=== PATIENT | female | born 1990 | race Caucasian/White ===

== ENCOUNTER 2017-08-03 13:01 | Emergency (ER) | payer BC, MEDICAID ==
[2017-08-03] MEDS ORDERED: traMADol 50 MG Tab PO ONE (13:02)
[2017-08-03] MEDS ORDERED: Ketorolac 60 MG/2 ML SDV IM ONE (13:55)
[2017-08-03] MEDS ORDERED: traMADol 50 MG Tab PO PRN (15:58)
--- NOTE | 2017-08-03 15:59 | EDM.PDOC ---
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 Stated Complaint: POSSIBLE RUPTURED OVARIAN CYST Time Seen by Provider: 08/03/17 15:52 Source of Information: Reports: Patient History Limitations: Reports: No Limitations - History of Present Illness INITIAL COMMENTS - FREE TEXT/NARRATIVE: c/o R ovarian pain pt with sharp pain in suprapubic area just to R of midline same pain as before pt has had ovarian cyst x 5-6 going back to age 11, has had laparoscopy and cyctectomy x 4, last time was 2013 onset menses 1d ago, usual flow, no BC, usualy with 3-5d flow cysts tend to occur in perimenstrual area visiting with per parents, 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, plans to see doctor locally in 2d or in [place] in 4-5d no f/c/d pain dec'd 01/26 to 10/26 after Toradol prefers not to take Lortab, made her woozy after neck surgery, willing to try tramadol APAP & Midol had not helped has had appy localized, no radiation, inc'd with walking and moving, dec'd when curled up in position right lower abdomen Pain Score (Numeric/FACES): 8 - Related Data Allergies Allergy/AdvReac Type Severity Reaction Status Date / Time No Known Allergies Allergy Verified 08/03/17 14:13 Home Meds: Home Meds Ciprofloxacin [Ciprofloxacin HCl] 250 mg PO BID #12 tab 08/03/17 [Rx] traMADol HCl [Tramadol HCl ER] 100 mg PO Q6H PRN #6 cpbp.25.75 08/03/17 [Rx] Past Medical History 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 Neurological History: Reports: Other (See Below) Other Neuro History: states that she has epilepsy but is not on any medication. - Past Surgical History GI Surgical History: Reports: Appendectomy Social & Family History - Family History Family Medical History: Noncontributory - Tobacco Use Smoking Status *Q: Current Every Day Smoker Years of Tobacco use: 8 Packs/Tins Daily: 0.3 - Caffeine Use Caffeine Use: Reports: Coffee, Soda - Recreational Drug Use Recreational Drug Use: No ED ROS GENERAL - Review of Systems Review Of Systems: See Below Constitutional: Reports: No Symptoms HEENT: Reports: No Symptoms Respiratory: Reports: No Symptoms Cardiovascular: Reports: No Symptoms Endocrine: Reports: No Symptoms GI/Abdominal: Reports: Abdominal Pain : Reports: No Symptoms. Denies: Dysuria, Frequency Musculoskeletal: Reports: No Symptoms Skin: Reports: No Symptoms Neurological: Reports: No Symptoms Psychiatric: Reports: No Symptoms Hematologic/Lymphatic: Reports: No Symptoms Immunologic: Reports: No Symptoms ED EXAM, RENAL/ - Physical Exam Exam: See Below Exam Limited By: No Limitations General Appearance: Alert, WD/WN, No Apparent Distress, Moderate Distress Neck: Normal Inspection, Supple, Non-Tender, Full Range of Motion Respiratory/Chest: No Respiratory Distress Cardiovascular: Regular Rate, Rhythm GI/Abdominal: Other (soft, nl BS x 4, 2+ tender only localized over R ovary, no flank tender). No: Distended, Guarding, Rigid, Rebound Course - Vital Signs Last Recorded V/S: Last Vital Signs Temp 36.9 C 08/03/17 13:40 Pulse 78 08/03/17 13:40 Resp 18 08/03/17 13:40 BP 108/65 08/03/17 13:40 Pulse Ox 100 08/03/17 13:40 - Orders/Labs/Meds Orders: Active Orders 24 hr Category Date Time Status CULTURE URINE [RM] Stat Lab 08/03/17 15:46 Ordered Labs: Laboratory Tests 08/03/17 Range/Units 14:50 Urine Color Yellow (YELLOW) Urine Appearance Cloudy (CLEAR) Urine pH 6.5 (5.0-6.5) Ur Specific [place] 1.020 (1.010-1.025) Urine Protein Negative (NEGATIVE) mg/dL Urine Glucose (UA) Normal (NEGATIVE) mg/dL Urine Ketones 50 H (NEGATIVE) mg/dL Urine Occult Blood Moderate H (NEGATIVE) Urine Nitrite Positive H (NEGATIVE) Urine Bilirubin Negative (NEGATIVE) Urine Urobilinogen 4 H (NEGATIVE) mg/dL Ur Leukocyte Esterase Negative (NEGATIVE) Urine RBC 5-10 (0) Urine WBC 10-20 H (0) Ur Squamous Epith Cells Few H (NS,R,O) Urine Bacteria Many H (NS) Urine Mucus Few H (NS) Meds: Medications Discontinued Medications Generic Name Dose Route Start Last Admin Trade Name Freq PRN Reason Stop Dose Admin Ketorolac Tromethamine 60 mg 08/03/17 13:55 08/03/17 14:13 Toradol IM 08/03/17 13:56 60 mg ONETIME ONE Administration Departure - Departure Time of Disposition: 16:01 Disposition: Home, Self-Care 01 Condition: Good Clinical Impression: Ovarian cyst, UTI (urinary tract infection) - Discharge Information Prescriptions: Ciprofloxacin [Ciprofloxacin HCl] 250 mg PO BID #12 tab traMADol HCl [Tramadol HCl ER] 100 mg PO Q6H PRN #6 cpbp.25.75 PRN Reason: Pain Instructions: Ovarian Cyst, Urinary Tract Infection, Adult Referrals: PCP,None [Primary Care Provider] - Additional Instructions: For infection, take ciprofloxacin 250 mg 1 tab 2 times a day for 7 days. For pain, take acetaminophen 500 mg 2 tabs and ibuprofen 200 mg 3 tabs 4 times a day (meals and bedtime) for 3-7 days. For pain, as needed, take tramadol 50 mg 1 tab every 6 hours. No alcohol. Soak in warm tub for 10 minutes several times a day as needed. Rest. See a local physician in 2 days or your [place] physician in 4-5 days. Call your Physician or Return to Emergency Department if: * Your condition worsens in any way. * You develop fever greater than 100.4. * You have vomitting that does not stop with medications. * You have pain that is not controlled with medications. - My Orders Last 24 Hours: My Active Orders 08/03/17 15:46 CULTURE URINE [RM] Stat - Assessment/Plan Last 24 Hours: My Active Orders 08/03/17 15:46 CULTURE URINE [RM] Stat
[2017-08-03] MEDS ORDERED: Ciprofloxacin 250 MG Tab PO SCH (16:00)
== END 2017-08-03 16:20 | disposition home or self-care (01) ==
LOC: FB.ED 13:01
DX: N83.201 Unspecified ovarian cyst, right side (principal); N39.0 Urinary tract infection, site not specified; F17.210 Nicotine dependence, cigarettes, uncomplicated; Z90.49 Acquired absence of other specified parts of digestive tract
CPT/HCPCS: 81001; 87086; 87088; 87186; 96372; 99284; A9270; J1885; 99283

== ENCOUNTER 2017-09-12 14:18 | Emergency (ER) | payer BC, MEDICAID ==
[2017-09-12] MEDS ORDERED: Sodium Chloride 0.9% 1,000 ML IV ONE (14:23)
[2017-09-12 15:21] LABS: ACETAMINOPHEN < 2 ug/mL (10-30)
[2017-09-12] MEDS ORDERED: Potassium Chloride 20 MEQ Tab.ER PO ONE ×2 (16:03→17:33)
--- NOTE | 2017-09-12 16:12 | EDM.PDOC ---
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 Pt took 8 tables of ultram during her sz because she was confused. She was on Phenobarbital in the past, did not take this medication for months. She was on Keppra at one time in the past, did "not like it". She had about 20-30 Seizures since March last year. Moved from [place] to [place] a few months ago, has no PMD or Neurologist in the [place] area at this time. her Seizures are lasting seconds and she has no LOC during the seizures. EEG was done in the distant past. Last CT head was 2008. Pt denied Trauma, tongue bite or Urine or stool incontinence during the seizures. Denied . No other acute medical issues. BP 141/75 RR 18, Pulse ox 100% on RA Temp 36.8 Pulse 77. 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: Other (see below) (ultram 8 tablets) head Pain Score (Numeric/FACES): 8 - Related Data Allergies Allergy/AdvReac Type Severity Reaction Status Date / Time No Known Allergies Allergy Verified 09/12/17 14:49 Home Meds: Home Meds traMADol HCl [Tramadol HCl ER] 100 mg PO Q6H PRN #6 cpbp.25.75 08/03/17 [Rx] levETIRAcetam [Keppra 500 MG/5 ML Soln] 500 mg PO DAILY #20 cup 09/12/17 [Rx] Past Medical History Cardiovascular History: Reports: Arrhythmia Other Cardiovascular History: hypotension 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 Neurological History: Reports: Seizure, Other (See Below) Other Neuro History: states that she has epilepsy but is not on any medication. - Past Surgical History Other HEENT Surgeries/Procedures: neck surgery GI Surgical History: Reports: Appendectomy Social & Family History - Family History Family Medical History: Noncontributory - Tobacco Use Smoking Status *Q: Current Every Day Smoker Years of Tobacco use: 9 Packs/Tins Daily: 0.5 - Caffeine Use Caffeine Use: Reports: Coffee, Energy Drinks, Tea - Recreational Drug Use Recreational Drug Use: No ED ROS GENERAL - Review of Systems Review Of Systems: See Below Constitutional: Reports: Weakness HEENT: Reports: No Symptoms Respiratory: Reports: No Symptoms Cardiovascular: Reports: No Symptoms Endocrine: Reports: No Symptoms GI/Abdominal: Reports: No Symptoms : Reports: No Symptoms Musculoskeletal: Reports: Muscle Pain Skin: Reports: No Symptoms Neurological: Reports: Weakness Psychiatric: Reports: No Symptoms Hematologic/Lymphatic: Reports: No Symptoms Immunologic: Reports: No Symptoms - Physical Exam Exam: See Below Exam Limited By: No Limitations General Appearance: Alert, WD/WN, Lethargic, Mild Distress Eye Exam: Bilateral Eye: EOMI, Normal Inspection Ears: Normal External Exam Nose: Normal Inspection Throat/Mouth: Normal Inspection, Normal Lips, Normal Voice, No Airway Compromise Head Exam: Atraumatic, Normocephalic Neck: Normal Inspection, Supple, Non-Tender, Full Range of Motion Respiratory/Chest: No Respiratory Distress, Lungs Clear Cardiovascular: Normal Peripheral Pulses, Regular Rate, Rhythm, No Edema, No Gallop, No JVD, No Murmur, No Rub GI/Abdominal: Normal Bowel Sounds, Soft, Non-Tender, No Organomegaly, No Abnormal Bruit, No Mass (Female) Exam: Deferred Rectal (Female) Exam: Deferred Neuro Exam (Abbreviated): Alert, Oriented, CN II-XII Intact, Normal Cognition, Abnormal Gait (walks slowly, but independent) Back Exam: Normal Inspection, Full Range of Motion Extremities: Normal Inspection, Normal Range of Motion Psychiatric: Normal Affect, Normal Mood Skin Exam: Warm, Dry, Intact, Normal Color, No Rash Course - Vital Signs Text/Narrative:: 27 y.o.w.f with a h/o partial epileptic disorder came to the ed after she had "anther seizure". Pt took 8 tables of ultram during her sz because she was confused. She was on Phenobarbital in the past, did not take this medication for months. She was on Keppra at one time in the past, did "not like it". She had about 20-30 Seizures since March last year. Moved from [place] to [place] a few months ago, has no PMD or Neurologist in the [place] area at this time. her Seizures are lasting seconds and she has no LOC during the seizures. EEG was done in the distant past. Last CT head was 2008. Pt denied Trauma, tongue bite or Urine or stool incontinence during the seizures. Denied . No other acute medical issues. BP 141/75 RR 18, Pulse ox 100% on RA Temp 36.8 Pulse 77. PE: WNWD W F with some lethargy after she had a partial epileptic Sz, wittnessed by her mom, for a few seconds, took 8 tbls of ultram by accident Imaging: CT head: Unchanged from 2008 as per RAD Labs: UDS was pos for Marijana, neg for barbiturates, CB was nl, BMP was pos for hypokalemia and elevated BUN/CR ratio, Mg was 2.0 Impression: H/o Partial epeileptic Seizures, Hypokalemia, Dehydration. Tx: Sz precautions, NS. Potassium 4.06pm Consultation: Dr. Christian, Neurologist, [facility]: Pt did not take Phenobarbital because the UDS was neg for barbital. Phenobarbital is not a good choice for Sz in this age. Pt was seen at [facility] in [place] and did not mention Phenobarbital in her med. list. Pt should first evaluated by a neurologist before a Sz medication could be recommended. However , Since the pt has a h/o Sz, Keppra would be ok to start till see by a Neurologist. No driving car, climimg trees etc for at least 3 months. Pt needs referral from the EDMD to be seen by a [facility] Neurologist. Today, electrolytes should be corrected and CT head is recommended. Reexam: improved after hydration and potassium Plan: D/C with instructions Last Recorded V/S: Last Vital Signs Temp 36.4 C 09/12/17 14:20 Pulse 77 09/12/17 14:20 Resp 17 09/12/17 14:20 BP 141/75 H 09/12/17 14:20 Pulse Ox 100 09/12/17 14:20 - Orders/Labs/Meds Orders: Active Orders 24 hr Category Date Time Status Head wo Cont [CT] Stat Exams 09/12/17 16:35 Taken DRUG SCREEN, URINE ALERE [URCHEM] Stat Lab 09/12/17 15:25 Ordered HCG QUALITATIVE,URINE [URCHEM] Stat Lab 09/12/17 15:25 Ordered UA W/MICROSCOPIC [URIN] Stat Lab 09/12/17 15:25 Ordered Labs: Laboratory Tests 09/12/17 09/12/17 09/12/17 Range/Units 14:35 14:35 14:35 WBC 8.9 (4.5-12.0) X10-3/uL RBC 4.58 (3.23-5.20) x10(6)uL Hgb 14.4 (11.5-15.5) g/dL Hct 42.8 (30.0-51.3) % MCV 93.4 (80-96) fL MCH 31.4 (27.7-33.6) pg MCHC 33.6 (32.2-35.4) g/dL RDW 12.4 (11.5-15.5) % Plt Count 221 (125-369) X10(3)uL MPV 9.1 (7.4-10.4) fL Neut % (Auto) 78.4 (46-82) % Lymph % (Auto) 10.0 L (13-37) % Atkinson % (Auto) 6.4 (4-12) % Eos % (Auto) 2 (1.0-5.0) % Baso % (Auto) 3 H (0-2) % Neut # (Auto) 6.9 (1.6-8.3) # Lymph # (Auto) 0.9 (0.6-5.0) # Atkinson # (Auto) 0.6 (0.0-1.3) # Eos # (Auto) 0.2 (0.0-0.8) # Baso # (Auto) 0.3 H (0.0-0.2) # PT 10.5 (8.7-11.1) INR 1.04 (0.89-1.13) Sodium 141 (135-145) mmol/L Potassium 3.2 L (3.5-5.3) mmol/L Chloride 105 (100-110) mmol/L Carbon Dioxide 25 (21-32) mmol/L BUN 13 (7-18) mg/dL Creatinine 0.6 (0.55-1.02) mg/dL Est Cr Clr Drug Dosing TNP Estimated GFR (MDRD) > 60 (>60) BUN/Creatinine Ratio 21.7 H (9-20) Glucose 90 (80-116) mg/dL Calcium 8.9 (8.6-10.2) mg/dL Magnesium (1.8-2.5) mg/dL TSH, Ultra Sensitive (0.36-3.74) IU/mL Urine Color (YELLOW) Urine Appearance (CLEAR) Urine pH (5.0-6.5) Ur Specific [place] (1.010-1.025) Urine Protein (NEGATIVE) mg/dL Urine Glucose (UA) (NEGATIVE) mg/dL Urine Ketones (NEGATIVE) mg/dL Urine Occult Blood (NEGATIVE) Urine Nitrite (NEGATIVE) Urine Bilirubin (NEGATIVE) Urine Urobilinogen (NEGATIVE) mg/dL Ur Leukocyte Esterase (NEGATIVE) Urine RBC (0) Urine WBC (0) Ur Squamous Epith Cells (NS,R,O) Urine Bacteria (NS) Urine Mucus (NS) Urine HCG, Qual (NEGATIVE) Salicylates 2.6 L (2.8-20.0) mg/dL Urine Opiates Screen (NEGATIVE) Ur Oxycodone Screen (NEGATIVE) Ur Propoxyphene Screen (NEGATIVE) Acetaminophen < 2 L (10-30) ug/mL Ur Barbituates Screen (NEGATIVE) Ur Tricyclics Screen (NEGATIVE) Ur Phencyclidine Scrn (NEGATIVE) Ur Amphetamine Screen (NEGATIVE) Urine MDMA Screen (NEGATIVE) U Benzodiazepines Scrn (NEGATIVE) U Cocaine Metab Screen (NEGATIVE) U Marijuana (THC) Screen (NEGATIVE) Ethyl Alcohol (<0.03) % 09/12/17 09/12/17 09/12/17 Range/Units 14:35 14:35 15:25 WBC (4.5-12.0) X10-3/uL RBC (3.23-5.20) x10(6)uL Hgb (11.5-15.5) g/dL Hct (30.0-51.3) % MCV (80-96) fL MCH (27.7-33.6) pg MCHC (32.2-35.4) g/dL RDW (11.5-15.5) % Plt Count (125-369) X10(3)uL MPV (7.4-10.4) fL Neut % (Auto) (46-82) % Lymph % (Auto) (13-37) % Atkinson % (Auto) (4-12) % Eos % (Auto) (1.0-5.0) % Baso % (Auto) (0-2) % Neut # (Auto) (1.6-8.3) # Lymph # (Auto) (0.6-5.0) # Atkinson # (Auto) (0.0-1.3) # Eos # (Auto) (0.0-0.8) # Baso # (Auto) (0.0-0.2) # PT (8.7-11.1) INR (0.89-1.13) Sodium (135-145) mmol/L Potassium (3.5-5.3) mmol/L Chloride (100-110) mmol/L Carbon Dioxide (21-32) mmol/L BUN (7-18) mg/dL Creatinine (0.55-1.02) mg/dL Est Cr Clr Drug Dosing Estimated GFR (MDRD) (>60) BUN/Creatinine Ratio (9-20) Glucose (80-116) mg/dL Calcium (8.6-10.2) mg/dL Magnesium 2.0 (1.8-2.5) mg/dL TSH, Ultra Sensitive 0.41 (0.36-3.74) IU/mL Urine Color (YELLOW) Urine Appearance (CLEAR) Urine pH (5.0-6.5) Ur Specific [place] (1.010-1.025) Urine Protein (NEGATIVE) mg/dL Urine Glucose (UA) (NEGATIVE) mg/dL Urine Ketones (NEGATIVE) mg/dL Urine Occult Blood (NEGATIVE) Urine Nitrite (NEGATIVE) Urine Bilirubin (NEGATIVE) Urine Urobilinogen (NEGATIVE) mg/dL Ur Leukocyte Esterase (NEGATIVE) Urine RBC (0) Urine WBC (0) Ur Squamous Epith Cells (NS,R,O) Urine Bacteria (NS) Urine Mucus (NS) Urine HCG, Qual (NEGATIVE) Salicylates (2.8-20.0) mg/dL Urine Opiates Screen Negative (NEGATIVE) Ur Oxycodone Screen Negative (NEGATIVE) Ur Propoxyphene Screen Negative (NEGATIVE) Acetaminophen (10-30) ug/mL Ur Barbituates Screen Negative (NEGATIVE) Ur Tricyclics Screen Negative (NEGATIVE) Ur Phencyclidine Scrn Negative (NEGATIVE) Ur Amphetamine Screen Negative (NEGATIVE) Urine MDMA Screen Negative (NEGATIVE) U Benzodiazepines Scrn Negative (NEGATIVE) U Cocaine Metab Screen Negative (NEGATIVE) U Marijuana (THC) Screen Positive H (NEGATIVE) Ethyl Alcohol < 0.03 (<0.03) % 09/12/17 09/12/17 Range/Units 15:25 15:25 WBC (4.5-12.0) X10-3/uL RBC (3.23-5.20) x10(6)uL Hgb (11.5-15.5) g/dL Hct (30.0-51.3) % MCV (80-96) fL MCH (27.7-33.6) pg MCHC (32.2-35.4) g/dL RDW (11.5-15.5) % Plt Count (125-369) X10(3)uL MPV (7.4-10.4) fL Neut % (Auto) (46-82) % Lymph % (Auto) (13-37) % [place] % (Auto) (4-12) % Eos % (Auto) (1.0-5.0) % Baso % (Auto) (0-2) % Neut # (Auto) (1.6-8.3) # Lymph # (Auto) (0.6-5.0) # [place] # (Auto) (0.0-1.3) # Eos # (Auto) (0.0-0.8) # Baso # (Auto) (0.0-0.2) # PT (8.7-11.1) INR (0.89-1.13) Sodium (135-145) mmol/L Potassium (3.5-5.3) mmol/L Chloride (100-110) mmol/L Carbon Dioxide (21-32) mmol/L BUN (7-18) mg/dL Creatinine (0.55-1.02) mg/dL Est Cr Clr Drug Dosing Estimated GFR (MDRD) (>60) BUN/Creatinine Ratio (9-20) Glucose (80-116) mg/dL Calcium (8.6-10.2) mg/dL Magnesium (1.8-2.5) mg/dL TSH, Ultra Sensitive (0.36-3.74) IU/mL Urine Color Yellow (YELLOW) Urine Appearance Slightly cloudy (CLEAR) Urine pH 5.0 (5.0-6.5) Ur Specific [place] 1.025 (1.010-1.025) Urine Protein Negative (NEGATIVE) mg/dL Urine Glucose (UA) Normal (NEGATIVE) mg/dL Urine Ketones 50 H (NEGATIVE) mg/dL Urine Occult Blood Negative (NEGATIVE) Urine Nitrite Negative (NEGATIVE) Urine Bilirubin Small H (NEGATIVE) Urine Urobilinogen 4 H (NEGATIVE) mg/dL Ur Leukocyte Esterase Negative (NEGATIVE) Urine RBC 0-5 (0) Urine WBC 0-5 (0) Ur Squamous Epith Cells Moderate H (NS,R,O) Urine Bacteria Moderate H (NS) Urine Mucus Moderate H (NS) Urine HCG, Qual Negative (NEGATIVE) Salicylates (2.8-20.0) mg/dL Urine Opiates Screen (NEGATIVE) Ur Oxycodone Screen (NEGATIVE) Ur Propoxyphene Screen (NEGATIVE) Acetaminophen (10-30) ug/mL Ur Barbituates Screen (NEGATIVE) Ur Tricyclics Screen (NEGATIVE) Ur Phencyclidine Scrn (NEGATIVE) Ur Amphetamine Screen (NEGATIVE) Urine MDMA Screen (NEGATIVE) U Benzodiazepines Scrn (NEGATIVE) U Cocaine Metab Screen (NEGATIVE) U Marijuana (THC) Screen (NEGATIVE) Ethyl Alcohol (<0.03) % Meds: Medications Discontinued Medications Generic Name Dose Route Start Last Admin Trade Name Jalil PRN Reason Stop Dose Admin Sodium Chloride 1,000 mls @ 999 mls/hr 09/12/17 14:23 09/12/17 14:56 Normal Saline IV 09/12/17 15:23 999 mls/hr .BOLUS ONE Administration Levetiracetam 500 mg 09/12/17 17:41 09/12/17 17:50 Keppra PO 09/12/17 17:42 500 mg ONETIME STA Administration Potassium Chloride 40 meq 09/12/17 16:03 09/12/17 16:17 Klor-Con M20 PO 09/12/17 16:04 40 meq ONETIME ONE Administration Potassium Chloride Confirm 09/12/17 17:33 09/12/17 17:51 Klor-Con M20 Administered 09/12/17 17:34 Not Given Dose 40 meq .ROUTE .STK-MED ONE Departure - Departure Time of Disposition: 17:21 Disposition: Home, Self-Care 01 Condition: Good Clinical Impression: Partial seizure disorder, Hypokalemia, Abnormal drug screen, Urine ketones, Dehydration - Discharge Information Prescriptions: levETIRAcetam [Keppra 500 MG/5 ML Soln] 500 mg PO DAILY #20 cup Instructions: Potassium Salts tablets, extended-release tablets or capsules, Levetiracetam tablets, Hypokalemia, Seizure, Adult, Dehydration, Adult Referrals: PCP,None [Primary Care Provider] - Forms: ED Department Discharge Additional Instructions: Please increase water intake, please take the 40 mqg potassium pill at 8 pm tonight, please take Keppra Sz meds 500 mg daily, start as soon you get home. Please follow up with Dr. Christian, Neurologist this week. Please call [phone] (Neuro clinic) for an appointment. Please bring all medical documents with you for the appointment. Please do not operate any vehicle, clime trees etc for 3 months after a seizure. Please come back to the ed if your symptoms get worse acutely. - My Orders Last 24 Hours: My Active Orders 09/12/17 15:25 DRUG SCREEN, URINE ALERE [URCHEM] Stat HCG QUALITATIVE,URINE [URCHEM] Stat UA W/MICROSCOPIC [URIN] Stat 09/12/17 16:35 Head wo Cont [CT] Stat - Assessment/Plan Last 24 Hours: My Active Orders 09/12/17 15:25 DRUG SCREEN, URINE ALERE [URCHEM] Stat HCG QUALITATIVE,URINE [URCHEM] Stat UA W/MICROSCOPIC [URIN] Stat 09/12/17 16:35 Head wo Cont [CT] Stat
[2017-09-12] MEDS ORDERED: Potassium Chloride 20 MEQ Tab.ER ONE (17:33)
[2017-09-12] MEDS ORDERED: levETIRAcetam 500 MG Tab PO STA (17:41)
--- NOTE | 2017-09-15 09:46 | CT ---
INDICATION: Seizures. CT HEAD WITHOUT CONTRAST: Serial contiguous 2.5 and 5-mm sections were obtained through the brain without contrast 09/12/2017 and compared with 2008. Total Exam DLP = 950.31 mGy-cm. No shift of midline structures, ventricular abnormalities, or abnormal areas of density were identified. Very minimal prominence of the sylvian fissure on the right is noted of questionable significance. No bleeding site or hematoma was seen. Visualized paranasal sinuses and mastoid air cells appear well aerated. No cranial abnormality was identified. IMPRESSION: Essentially normal CT of the brain, stable compared with 2008. Report was called to Dr. Tripathi at 1719 hours, 09/12/2017. [facility]
== END 2017-09-12 17:52 | disposition home or self-care (01) ==
LOC: FB.ED 14:18
DX: G40.909 Epilepsy, unspecified, not intractable, without status epilepticus (principal); E87.6 Hypokalemia; E86.0 Dehydration; R82.4 Acetonuria; R82.5 Elevated urine levels of drugs, medicaments and biological substances; I10 Essential (primary) hypertension; F17.210 Nicotine dependence, cigarettes, uncomplicated
CPT/HCPCS: 36415; 70450; 80048; 80305; 81001; 81025; 83735; 84443; 85025; 85610; 96360; 99284; A9270; G0480; J7040